=== PATIENT | female | born 1980 | race American Indian/Alaskan Native ===

== ENCOUNTER 2016-12-10 13:42 | Emergency (ER) | payer SELFPAY ==
[2016-12-10 14:53] VITALS: BP 119/73
--- NOTE | 2016-12-10 17:54 | Emergency Department Report ---
HPI - General Chief Complaint: Fall Time Seen by Provider: 12/10/16 17:49 - HPI HPI: She is a 36-year-old female currently at 20 weeks gestation under care who presents for left ankle pain and swelling 1 week. Patient states she fell initial vital week ago and since then and has some moderates increased swelling in her ankle that is not getting better. Patient states she has been seen by OB /[employer]INEER after the incident and has been cleared. She states she came in to be evaluated for her left ankle pain and swelling. Patient describes pain as throbbing and aching in nature is 6 out of 10 intensity with non-radiation. Patient denies fever/chills/nausea/vomiting/vaginal discharge/headache/ shortness of breath or chest pain. ED Past Medical Hx - Past Medical History Previous Medical History?: No - Surgical History Past Surgical History?: No - Social History Smoking Status: Never Smoker Substance Use Type: None ED Review of Systems ROS: Stated complaint: SLIP AND FALL Other details as noted in HPI Constitutional: denies: chills, fever Eyes: denies: eye pain, eye discharge, vision change ENT: denies: ear pain, throat pain Respiratory: denies: cough, shortness of breath, wheezing Cardiovascular: denies: chest pain, palpitations Endocrine: no symptoms reported Gastrointestinal: denies: abdominal pain, nausea, diarrhea Genitourinary: denies: urgency, dysuria, discharge Musculoskeletal: denies: back pain, joint swelling, arthralgia Skin: denies: rash, lesions Neurological: denies: headache, weakness, paresthesias Psychiatric: denies: anxiety, depression Hematological/Lymphatic: denies: easy bleeding, easy bruising Physical Exam - Physical Exam Vital Signs: Vital Signs 12/10/16 14:50 Temperature 98.0 F Pulse Rate 85 Respiratory 18 Rate Blood Pressure 119/73 O2 Sat by Pulse 100 Oximetry Physical Exam: GENERAL: Alert and oriented x3, no apparent distress, Normal Gait, atraumatic. HEAD: Head is normocephalic and a-traumatic. EYES: Extra ocular muscles are intact. Pupils are equal, round, and reactive to light and accommodation. NECK: Supple. Non edematous, No carotid bruits. No lymphadenopathy or thyromegaly. No C-spine tenderness LUNGS: Symetrical with respiration, No wheezing, no rales or crackles, CTAB. HEART: S1, S2 present, regular rate and rhythm without murmur, no rubs, no gallops. ABDOMEN: No organomegaly was noted,Positive bowel sounds, soft, and non- distended. . Nontender to palpation on all Quadrants, NO CVA tenderness. EXTREMITIES/MUSCULOSKELETAL: No cyanosis, clubbing, rash, lesions or edema. Full ROM bilaterally. LE Pulses 2+ bilaterally. LE 5+ strength bilaterally, mild ankle edema seen of left ankle. Mild tenderness to palpation of the lateral aspect of the ankle. Full range of motion of ankle. No loss of sensation. NEUROLOGIC: No focal Deficit, Cranial nerves II through XII are grossly intact. rg. PSYCHIATRIC: Mood is congruent with affect, denies suicidal or homicidal ideations. SKIN: Warm and dry, No lesions, No ulceration or induration present. ED Course Vital Signs 12/10/16 14:50 Temperature 98.0 F Pulse Rate 85 Respiratory 18 Rate Blood Pressure 119/73 O2 Sat by Pulse 100 Oximetry ED Medical Decision Making - Radiology Data Radiology results: report reviewed, image reviewed - Medical Decision Making 36-year-old female presents with ED course: She before x-ray results came back. Patient told EMT medical chart picker her kids shooting care so she left. I did not get a chance to talk with the patient actually left while I was seeing another patient Eye exam in x-ray after physician at last. X-ray was normal no acute dislocation fracture mild tissue swelling seen Ankle XR reported above Critical care attestation.: If time is entered above; I have spent that time in minutes in the direct care of this critically ill patient, excluding procedure time. ED Disposition Clinical Impression: Fall at home Qualifiers: Encounter type: initial encounter Qualified Code(s): W19.XXXA - Unspecified fall, initial encounter Disposition: ELOPED Is pt being admited?: No Does the pt Need Aspirin: No Condition: Stable Referrals: HOLGER SANCHEZ MD [Primary Care Provider] - 3-5 Days Forms: Work/School Release Form(ED) Time of Disposition: 06:45
--- NOTE | 2016-12-10 19:53 | XRay Report ---
FINAL REPORT EXAM: XR ANKLE 2V LT HISTORY: fall with left ankle pain TECHNIQUE: AP and lateral views of the left ankle PRIORS: None. FINDINGS: There is no evidence for acute fracture or dislocation. There is extensive soft tissue swelling around the left ankle. No radiopaque foreign bodies are seen. The ankle mortise is intact. Bony mineralization is normal and joint spaces are maintained. Spurring off the plantar and posterior aspects of the calcaneus and posterior talus is noted. IMPRESSION: No acute bony abnormality noted. Extensive soft tissue swelling around the ankle.
== END 2016-12-10 18:55 | disposition left against medical advice (07) ==
LOC: ED 13:42
DX: O9A.212 Injury, poisoning and certain other consequences of external causes complicating pregnancy, second trimester (principal); M25.572 Pain in left ankle and joints of left foot; M79.89 Other specified soft tissue disorders; Z3A.20 20 weeks gestation of pregnancy; W18.30XA Fall on same level, unspecified, initial encounter; Y93.9 Activity, unspecified; Y92.099 Unspecified place in other non-institutional residence as the place of occurrence of the external cause; Y99.9 Unspecified external cause status
CPT/HCPCS: 99283